=== PATIENT | female | born 1965 | race African-American/Black ===

== ENCOUNTER 2021-05-31 21:25 | Emergency (ER) | payer BC, OTHER ==
[~2021-05-31] VITALS: Ht 175.3 cm; Wt 148.0 kg
[2021-05-31] MEDS ORDERED: HYDROcodone/APAP 5/325MG 1 TAB TABLET PO ONE (21:45)
[2021-05-31] MEDS ORDERED: CYCLOBENZAPRINE 10 MG TABLET. PO ONE (21:45)
--- NOTE | 2021-05-31 22:11 | RAD ---
EXAM: Right knee, 3 views. HISTORY: Fall. Pain. COMPARISON: 11/19/2015 FINDINGS: 3 views of the right knee are obtained. There is lucency and cortical irregularity along th e lateral aspect of the lateral femoral condyle, possibly due to a chronic avulsion fracture fragment for changes due to chronic lateral collateral ligament injury. There is no joint effusion to suggest acute fracture. There is enthesopathy along the patella. IMPRESSION: 1. Lucency and cortical irregularity along the lateral aspect of the lateral femoral condyle, possibl y due to a chronic avulsion fracture fragment or changes related to lateral collateral ligament injur y. 2. No joint effusion. Electronically signed by: Wilma Cantu MD (05/31/2021 10:09 PM) [facility]
--- NOTE | 2021-05-31 23:01 | RAD ---
EXAM: Lumbar spine CT without contrast. HISTORY: Fall. Pain. TECHNIQUE: Computed tomographic images of the lumbar spine were obtained without contrast. Multiplana r reformatting was performed. *One or more of the following individualized dose reduction techniques were utilized for this examina tion: 1. Automated exposure control. 2. Adjustment of the mA and/or kV according to patient size. 3. Use of iterative reconstruction technique. COMPARISON: None. FINDINGS: There is mild lumbar scoliosis. There is no significant listhesis. There is mild multilevel endplate remodeling. There is multilevel facet arthropathy. There is no acute fracture. There is deg enerative subchondral sclerosis, spurring and vacuum phenomenon involving the sacroiliac joints. At L1-L2, there is mild bilateral facet arthropathy. There is no stenosis. At L2-L3, there is a disc bulge and mild endplate remodeling. There is mild bilateral facet arthropat hy. There is mild central canal stenosis. At L3-L4, there is a bulge and mild endplate remodeling. There is mild bilateral facet arthropathy. T here is mild central canal stenosis. At L4-L5, there is a disc bulge and mild endplate remodeling. There is moderate to severe bilateral f acet arthropathy. There is mild central canal stenosis. At L5-S1, there is a left lateral recess to foraminal disc protrusion and osteophyte complex superimp osed on a disc bulge and endplate remodeling. There is mild left greater than right facet arthropathy . There is moderate bilateral foraminal stenosis. IMPRESSION: 1. No acute osseous finding. 2. Multilevel degenerative change involving the lumbar spine, described above. This is associated wit h mild central canal stenosis at L2-L3 and L3-L4 and L4-L5 and moderate bilateral foraminal stenosis at L5-S1. Electronically signed by: Wilma Cantu MD (05/31/2021 10:58 PM) [facility]
--- NOTE | 2021-06-01 00:06 | RAD ---
PQRS Compliance Statement: One or more of the following individualized dose reduction techniques were utilized for this examinat ion: 1. Automated exposure control 2. Adjustment of the mA and/or kV according to patient size 3. Use of iterative reconstruction technique CT LOWER RIGHT EXTREMITY WITHOUT CONTRAST 05/31/2021 11:31 PM Indication: Right knee pain COMPARISON: None available. TECHNIQUE: Multiple axial CT images of the right knee were obtained with intravenous contrast. Cabezas l and sagittal reformats are provided. FINDINGS: There is no acute fracture or dislocation. No significant knee joint effusion. Mild patellofemoral os teoarthrosis with subcortical cystic change along the patella and patellar enthesopathy. Mild medial femorotibial joint space narrowing compatible with mild osteoarthrosis. There is minimal infrapatella r edema and edema along the tibial tuberosity which could relate to direct trauma. No disruption of t he patellar ligament or quadriceps complex. ACL and PCL are grossly intact. Bone mineralization is wi thin normal limits. There is no soft tissue gas or osseous erosion. No radiopaque foreign body. IMPRESSION: No acute fracture or significant knee joint effusion. If there is edema superficial to the patellar t uberosity which may reflect direct injury. Electronically signed by: Phuong Hardin MD (06/01/2021 12:04 AM) [facility]
[2021-06-01 00:25] VITALS: BP 172/92
[2021-06-01] MEDS ORDERED: CYCL10TA19 PO (00:29)
[2021-06-01] MEDS ORDERED: HYDR-2761 PO (00:29)
--- NOTE | 2021-06-01 00:33 | PHYS DOC ---
Past Medical History Additional Past Medical Histor: GOUT,ARTHRITIS Past Surgical History: Other Additional Past Surgical Histo: LEFT KNEE SCOPE AND CYST TO LEFT HAND General Adult EDM: Chief Complaint: MECHANICAL FALL HPI: HPI: Patient is a 55 year old female who presents the ED today to be evaluated for a sharp 8/10 intermittent right knee pain and low back pain that began today after she fell. Patient denies any loss of consciousness. Denies hitting her head on the ground. Denies being on any blood thinners. Denies any head pain, neck pain, mid or low back pain. States most of her pain is on weightbearing. Denies anything specifically relieving her pain. Review of Systems: Review of Systems: Constitutional: Denies fever or chills. [] Eyes: Denies change in visual acuity. [] HENT: Denies nasal congestion or sore throat. [] Respiratory: Denies cough or shortness of breath. [] Cardiovascular: Denies chest pain or edema. [] GI: Denies abdominal pain, nausea, vomiting, bloody stools or diarrhea. [] : Denies dysuria. [] Musculoskeletal: Reports low back pain right knee pain Integument: Denies rash. [] Neurologic: Denies headache, focal weakness or sensory changes. [] ] Psychiatric: Denies depression or anxiety. [] Heart Score: C/O Chest Pain: N/A Risk Factors: Risk Factors: DM, Current or recent (<one month) smoker, HTN, HLP, family history of CAD, obesity. Risk Scores: Score 0 - 3: 2.5% MACE over next 6 weeks - Discharge Home Score 4 - 6: 20.3% MACE over next 6 weeks - Admit for Clinical Observation Score 7 - 10: 72.7% MACE over next 6 weeks - Early Invasive Strategies Current Medications: Current Medications Medications (Trade) Dose Ordered Sig/Fabienne Start Time Stop Time Status Last Admin Dose Admin Acetaminophen/ Hydrocodone Bitart (Lortab 5/325) 2 tab 1X ONCE 05/31/21 21:45 05/31/21 21:46 DC 05/31/21 21:56 2 TAB Cyclobenzaprine HCl (Flexeril) 10 mg 1X ONCE 05/31/21 21:45 05/31/21 21:46 DC 05/31/21 21:56 10 MG Allergies: Allergies: Allergies Coded Allergies Type Severity Reaction Last Updated Verified Penicillins Allergy Intermediate Hives 05/31/21 Yes Physical Exam: PE: Constitutional: Well developed, well nourished, no acute distress, non-toxic appearance. [] HENT: Normocephalic, atraumatic, bilateral external ears normal, oropharynx moist, no oral exudates, nose normal. [] Eyes: PERRLA, EOMI, conjunctiva normal, no discharge. [] Neck: Normal range of motion, no tenderness, supple, no stridor. [] Cardiovascular:Heart rate regular rhythm, no murmur [] Lungs & Thorax: Bilateral breath sounds clear to auscultation [] Abdomen: Bowel sounds normal, soft, no tenderness, no masses, no pulsatile masses. [] Skin: Warm, dry, no erythema, no rash. [] Back: Diffuse paraspinal muscle tenderness bilateral lumbar spine as well as midline lumbar spine tenderness, no CVA tenderness. [] Extremities: Right knee with no obvious deformity, tenderness on palpation of the right anterior knee. Limited range of motion to the right knee due to pain. +2 right pedal pulse. Cap refill less than 2 seconds of right lower extremity Neurologic: Alert and oriented X 3, normal motor function, normal sensory function, no focal deficits noted. [] Psychologic: Affect normal, judgement normal, mood normal. [] Current Patient Data: Vital Signs: Vital Signs Date Time Temp Pulse Resp B/P (MAP) Pulse Ox O2 Delivery O2 Flow Rate FiO2 05/31/21 21:56 20 Room Air 05/31/21 21:31 98.1 85 139/78 (98) 100 98.1 EKG: EKG: [] Radiology/Procedures: Radiology/Procedures: []PROCEDURE: KNEE RIGHT 4V EXAM: Right knee, 3 views. HISTORY: Fall. Pain. COMPARISON: 11/19/2015 FINDINGS: 3 views of the right knee are obtained. There is lucency and cortical irregularity along the lateral aspect of the lateral femoral condyle, possibly due to a chronic avulsion fracture fragment for changes due to chronic lateral collateral ligament injury. There is no joint effusion to suggest acute fracture. There is enthesopathy along the patella. IMPRESSION: 1. Lucency and cortical irregularity along the lateral aspect of the lateral femoral condyle, possibly due to a chronic avulsion fracture fragment or changes related to lateral collateral ligament injury. 2. No joint effusion. Electronically signed by: Wilma Cedillo MD (05/31/2021 10:09 PM) [facility] PROCEDURE: CT LOWER EXTREMITY WO RIGHT PQRS Compliance Statement: One or more of the following individualized dose reduction techniques were utilized for this examination: 1. Automated exposure control 2. Adjustment of the mA and/or kV according to patient size 3. Use of iterative reconstruction technique CT LOWER RIGHT EXTREMITY WITHOUT CONTRAST 05/31/2021 11:31 PM Indication: Right knee pain COMPARISON: None available. TECHNIQUE: Multiple axial CT images of the right knee were obtained with intravenous contrast. Coronal and sagittal reformats are provided. FINDINGS: There is no acute fracture or dislocation. No significant knee joint effusion. Mild patellofemoral osteoarthrosis with subcortical cystic change along the patella and patellar enthesopathy. Mild medial femorotibial joint space narrowing compatible with mild osteoarthrosis. There is minimal infrapatellar edema and edema along the tibial tuberosity which could relate to direct trauma. No disruption of the patellar ligament or quadriceps complex. ACL and PCL are grossly intact. Bone mineralization is within normal limits. There is no soft tissue gas or osseous erosion. No radiopaque foreign body. IMPRESSION: No acute fracture or significant knee joint effusion. If there is edema superficial to the patellar tuberosity which may reflect direct injury. Electronically signed by: Trace Díaz MD (06/01/2021 12:04 AM) [facility] DICTATED and SIGNED BY: TRACE DÍAZ MD DATE: 06/01/21 [id number] DICTATED and SIGNED BY: WILMA CEDILLO MD DATE: 05/31/21 [id number] PROCEDURE: CT LUMBAR SPINE WO CONTRAST EXAM: Lumbar spine CT without contrast. HISTORY: Fall. Pain. TECHNIQUE: Computed tomographic images of the lumbar spine were obtained without contrast. Multiplanar reformatting was performed. *One or more of the following individualized dose reduction techniques were utilized for this examination: 1. Automated exposure control. 2. Adjustment of the mA and/or kV according to patient size. 3. Use of iterative reconstruction technique. COMPARISON: None. FINDINGS: There is mild lumbar scoliosis. There is no significant listhesis. There is mild multilevel endplate remodeling. There is multilevel facet arthropathy. There is no acute fracture. There is degenerative subchondral sclerosis, spurring and vacuum phenomenon involving the sacroiliac joints. At L1-L2, there is mild bilateral facet arthropathy. There is no stenosis. At L2-L3, there is a disc bulge and mild endplate remodeling. There is mild bilateral facet arthropathy. There is mild central canal stenosis. At L3-L4, there is a bulge and mild endplate remodeling. There is mild bilateral facet arthropathy. There is mild central canal stenosis. At L4-L5, there is a disc bulge and mild endplate remodeling. There is moderate to severe bilateral facet arthropathy. There is mild central canal stenosis. At L5-S1, there is a left lateral recess to foraminal disc protrusion and ost eophyte complex superimposed on a disc bulge and endplate remodeling. There is mild left greater than right facet arthropathy. There is moderate bilateral foraminal stenosis. IMPRESSION: 1. No acute osseous finding. 2. Multilevel degenerative change involving the lumbar spine, described above. This is associated with mild central canal stenosis at L2-L3 and L3-L4 and L4-L5 and moderate bilateral foraminal stenosis at L5-S1. Electronically signed by: Wilma Cedillo MD (05/31/2021 10:58 PM) [facility] DICTATED and SIGNED BY: WILMA CEDILLO MD DATE: 05/31/21 [id number] 0 Course & Med Decision Making: Course & Med Decision Making Pertinent Labs and Imaging studies reviewed. (See chart for details) This a 55-year-old female patient presenting to the ED today with low back pain and right knee pain that began today after falling. CT of the lumbar spine interpreted by radiologist was negative for any acute findings CT of the right knee-negative for any acute findings Right knee x-rays interpreted by radiologist lucency and cortical irregularity along the lateral aspect of the lateral femoral condyle, possibly due to a chronic avulsion fracture fragment or changes related to lateral collateral ligament injury. No joint effusion. Acewrap and knee immobilizer applied to the right knee by the dental technologist, neurovascular exam done by the tech is normal. Encouraged. Follow-up with Ortho and PCP in 1 week Anna Disclaimer: Anna Disclaimer: This electronic medical record was generated, in whole or in part, using a voice recognition dictation system. Departure Departure Impression: Primary Impression: Fall from standing Qualified Codes: W19.XXXA - Unspecified fall, initial encounter Additional Impressions: Lumbar contusion Qualified Codes: S30.0XXA - Contusion of lower back and pelvis, initial encounter Knee contusion Qualified Codes: S80.01XA - Contusion of right knee, initial encounter Disposition: HOME / SELF CARE / HOMELESS Condition: STABLE Referrals: Ramez WREN MD (PCP) follow up in one week KEYUR HARP MD follow up in one week Patient Instructions: Contusion, Aiaz-ev-Ohax, Knee Pain, [id number] Additional Instructions: You were evaluated in the emergency room for low back pain and right knee pain after falling. Your CT of the lumbar spine and right knee are negative for any acute findings. Please follow-up with your primary care doctor as well as orthopedic doctor in 1 week Scripts Cyclobenzaprine Hcl (CYCLOBENZAPRINE HCL) 10 Mg Tablet 1 TAB PO TID, #30 TAB Prov: YOGI MANZO APRN 06/01/21 Hydrocodone Bit/Acetaminophen (HYDROCODONE-APAP 5-325 ) 1 Tab Tablet 1 TAB PO PRN Q6HRS PRN for PAIN, #14 TAB 0 Refills Prov: YOGI MANZO SHOES SALESPERSON 06/01/21 YOGI MANZO SHOES SALESPERSON Jun 01, 2021 00:33
== END 2021-06-01 01:17 | disposition home or self-care (01) ==
LOC: ER 21:25
DX: S80.01XA Contusion of right knee, initial encounter (principal); S30.0XXA Contusion of lower back and pelvis, initial encounter; M10.9 Gout, unspecified; Z88.0 Allergy status to penicillin; W18.39XA Other fall on same level, initial encounter; Y93.89 Activity, other specified; Y92.89 Other specified places as the place of occurrence of the external cause; Y99.8 Other external cause status
CPT/HCPCS: 29505; 72131; 73564; 73700; A6450; 99284-25

== ENCOUNTER → 2021-06-16 | Outpatient (CLI) | payer OTHER ==
[2021-06-01 00:25] VITALS: BP 172/92
[~2021-06-16] MED LIST: CYCL10TA19 PO; HYDR-2761 PO
[2021-06-16 16:15] LABS: BASO # 0.1 x10^3/uL (0.0-0.2); BASO % 1 % (0-3); EOS # 0.2 x10^3/uL (0.0-0.7); EOS % 4 % (0-3); HEMATOCRIT 38.1 % (36.0-47.0); LYMPH # 2.2 x10^3/uL (1.0-4.8); LYMPH % 37 % (24-48); MEAN CORPUSCULAR HEMOGLOBIN 28 pg (25-35); MEAN CORPUSCULAR HGB CONC 32 g/dL (31-37); MEAN CORPUSCULAR VOLUME 89 fL (79-100); MONO # 0.8 x10^3/uL (0.0-1.1); MONO % 13 % (0-9); NEUT # 2.7 x10^3/uL (1.8-7.7); NEUT % 45 % (31-73); PLATELET COUNT 227 x10^3/uL (140-400); RED BLOOD COUNT 4.26 x10^6/uL (3.50-5.40); RED CELL DISTRIBUTION WIDTH 16.8 % (11.5-14.5)
[2021-06-16 17:07] LABS: ALBUMIN 3.7 g/dL (3.4-5.0); ALBUMIN/GLOBULIN RATIO 0.9 (1.0-1.7); CALCIUM 9.4 mg/dL (8.5-10.1); CREATININE 1.3 mg/dL (0.6-1.0); GFR 51.1; POTASSIUM 3.9 mmol/L (3.5-5.1); TOTAL BILIRUBIN 0.4 mg/dL (0.2-1.0); TOTAL PROTEIN 7.8 g/dL (6.4-8.2)
[2021-06-17 07:20] LABS: HEMOGLOBIN A1C 7.3 % (4.8-5.6)
== END ==
LOC: LAB 15:40
PROVIDERS: ATTEND Family Medicine
DX: Z13.220 Encounter for screening for lipoid disorders (principal); I10 Essential (primary) hypertension; E11.9 Type 2 diabetes mellitus without complications
CPT/HCPCS: 36415; 80053; 80061; 83036; 85025